=== PATIENT | female | born 1960 | race Caucasian/White ===

== ENCOUNTER 2022-06-01 10:45 | Outpatient (CLI) | payer BC ==
[2022-06-01] MEDS ORDERED: Magnevist 469MG/ML 20 ML VIAL ONE (13:41)
== END 2022-06-01 10:46 | disposition home or self-care (01) ==
LOC: CSHMRI 10:45
PROVIDERS: ATTEND Surgery
DX: G95.9 Disease of spinal cord, unspecified (principal); D17.79 Benign lipomatous neoplasm of other sites
CPT/HCPCS: 72158; 82565; A9579